=== PATIENT | male | born 1995 | race Caucasian/White ===

== ENCOUNTER → 2021-07-29 15:55 | Outpatient (CLI) | payer OTHER, SELFPAY ==
--- NOTE | 2021-07-29 15:59 | DI.MRI.S_ITS ---
PROCEDURE: MR SHOULDER LT WO CON INDICATIONS: PAIN IN SHOULDER TECHNIQUE: Noncontrast oblique coronal T2 fast spin echo with fat saturation, oblique sagittal T1 spin echo and T2 fast spin echo with fat saturation, axial T1 spin echo and T2 fast spin echo with fat saturation through the shoulder. COMPARISON: [facility], CR, XR SHOULDER 2+ VIEWS LEFT, 07/12/2021, 15:17. FINDINGS: Image quality: Excellent. Rotator cuff: There is low-grade partial-thickness tear of the distal supraspinatus tendon along the bursal surface and simple mild tendinosis. There is mild tendinosis of the infraspinatus and subscapularis without discrete tendon tear. Sagittal images demonstrate no rotator cuff muscle atrophy. Bones and bursae: No bone marrow contusions or fractures. Mild acromioclavicular joint degeneration. There is an os acromiale. No pathologic subacromial-subdeltoid or subcoracoid bursal fluid is present. Capsule and soft tissues: There is anterior superior labral tear at 11:00 position. The long head of the biceps tendon demonstrates normal location and morphology. The rotator interval appears normal, without fibrosis. The coracohumeral ligament is normal in thickness. IMPRESSION: 1. Low-grade partial thickness tear of the supraspinatus tendon and mild tendinosis. 2. Mild tendinosis of the infraspinatus and subscapularis tendons. 3. Anterior superior labral tear at 11:00 position. 4. 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 Dictated by: Krystina Null M.D. on 08/01/2021 at 9:11 Approved by: Krystina Null M.D. on 08/01/2021 at 9:21
== END ==
PROVIDERS: Referring Provider Physical Medicine & Rehabilitation Pain Medicine; Visit Provider Physical Medicine & Rehabilitation Pain Medicine
DX: M75.112 Incomplete rotator cuff tear or rupture of left shoulder, not specified as traumatic (principal); S43.492A Other sprain of left shoulder joint, initial encounter; M19.012 Primary osteoarthritis, left shoulder; M25.512 Pain in left shoulder
CPT/HCPCS: 73221

== ENCOUNTER → 2021-08-17 16:08 | Outpatient (CLI) | payer OTHER, SELFPAY ==
--- NOTE | 2021-08-17 | DI.MRI.S_ITS ---
PROCEDURE: MR HEAD/BRAIN WO CON INDICATIONS: MIGRAINE, UNSPECIFIED TECHNIQUE: Noncontrast axial T1 spin echo, axial T2 fast spin echo, sagittal and axial FLAIR, coronal T2 fast spin echo, axial gradient echo, axial diffusion and ADC through the brain. COMPARISON: None. FINDINGS: Image quality: Excellent. CSF Spaces: Basal cisterns are patent. No extra-axial fluid collections. Ventricles are normal in size and shape. Brain: No intracranial masses or hemorrhage. Torrez/white matter interface is normal. Brainstem appears normal. Diffusion-weighted images demonstrate no acute ischemic insult. No chronic ischemic insults. Normal intravascular flow voids are present. Skull and face: Calvarium has normal marrow signal. Orbits appear normal. Sinuses: Is there is a small mucous retention cyst seen involving the inferior right maxillary sinus. Sinuses and mastoids are otherwise clear. IMPRESSION: Normal intracranial study for age, without a cause of migraine headaches identified. Dictated by: Anton Ontiveros M.D. on 08/17/2021 at 17:04 Approved by: Anton Ontiveros M.D. on 08/17/2021 at 17:04
== END ==
PROVIDERS: Referring Provider Student in an Organized Health Care Education/Training Program; Visit Provider Student in an Organized Health Care Education/Training Program
DX: G43.909 Migraine, unspecified, not intractable, without status migrainosus (principal)
CPT/HCPCS: 70551

== ENCOUNTER → 2021-12-06 10:36 | Outpatient (CLI) | payer OTHER, SELFPAY ==
[2021-12-06 11:46] LABS: COVID19 -Nasal RAPID Negative (Negative)
== END ==
PROVIDERS: Referring Provider Orthopaedic Surgery; Visit Provider Orthopaedic Surgery
DX: Z20.822 Contact with and (suspected) exposure to COVID-19 (principal)
CPT/HCPCS: 87635; C9803

== ENCOUNTER 2021-12-08 08:47 | Day surgery (SDC) | payer OTHER, SELFPAY ==
[2021-12-05 14:57] VITALS: BMI 27.5
[2021-12-08] VITALS (9 sets, daily range): BP systolic 131–157; BP diastolic 76–107; PULSE 16–100; RESP 1–18; TEMP 36.3–36.6; O2SAT 91–100; BMI 32.5
[2021-12-08] MEDS: LACTATED RINGERS 1,000 ML 42 ML IV ×2 (09:39→12:56)
--- NOTE | 2021-12-08 10:32 | PM.HP.1 ---
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 Causing him pain and discomfort possible as a sensation of instability. Due to continued dysfunction to the left shoulder patient is interested to have a nonunion excised as well as the shoulder joint evaluated for signs of instability. Patient History Medical History Depression Headache, migraine Recurrent dislocation Family & Social History Social History: household members friend(s) Tobacco & Substance use: Tobacco type cigarettes,e-cigarettes Smoking Status Former smoker alcohol intake current alcohol intake frequency a few times a month Substance Use Type does not use Meds Home Medications and Allergies Allergies Allergy/AdvReac Type Severity Reaction Status Date / Time No Known Drug Allergies Allergy Verified 12/08/21 09:04 Exam Vital Signs (past 8 hours): - 12/08/21 09:16 Temperature 97.8 F Pulse Rate 64 Respiratory Rate 16 Blood Pressure 144/94 H Pulse Oximetry 100 Oxygen Delivery Method Room Air Oxygen Delivery Method Room Air Narrative Exam Narrative: Patient has passive full range of motion of the shoulder. No sign of any instability with full range of motion. He is tender to palpation over the AC joint. Normal rotator cuff strength and function. No sign of any stiffness or contractures. Does have a positive apprehension sign. Due to guarding it is hard to fully assess signs of laxity to the glenohumeral joint. 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 Also cites possible for instability. Discussed with the patient treatment options both operative versus non operative and the risks and limitations associated both. Patient is interested in proceeding with surgical treatment which would involve an open distal clavicle excision removing that nonunited fragment. Would also do a diagnostic scope and see if there is truly any signs of instability and if so do an anterior stabilization procedure arthroscopically as well. Patient fully understands the risk and limitations associated with this procedure as well as the rehabilitation and recovery required afterwards. All of his questions and concerns were answered to his full satisfaction . The risk, benefits, alternatives, possible complications, operative course, and postop outcomes were discussed. Complications including but not limiting to bleeding, infection, fracture, nerve injury, continued pain postoperatively or instability postoperatively were discussed in detail. Medical complications including but not limited to deep venous thrombosis event, anesthesia complications with excessive bleeding, vascular events or cardiac events and other possible complications were discussed in detail. Need for postoperative rehabilitation and anticipated hospital stay and clinical course were discussed in detail. Patient acknowledges understanding and elects to proceed with surgery. Time Spent With Patient Critical Care time: I spent a total of [] minutes of critical care time on this patient's care today; this time is exclusive of procedural time.
--- NOTE | 2021-12-08 10:35 | PM.PREOP ---
Pre-operative Note Interval Note History & Physical reviewed/Exam performed by Physician: Yes Changes to H&P: No
[2021-12-08] MEDS: CEFAZOLIN 2 GM/100 ML PREMIX 100 ML IV (11:40)
--- NOTE | 2021-12-08 12:07 | SUR.OPER ---
Beach chair with Maquet shoulder positioner. Lower body on padded OR bed. Head in foam padded head cradle, secured with straps. Non-operative arm secured <90 degrees abduction. Pillow under knees. Safety belt at thigh. Cloth tape over blanket over lower legs. Gel pad under heels
[2021-12-08] MEDS: BUPIVACAINE 0.5% W/ EPI (PF) 30 ML VIAL INJ (12:12)
[2021-12-08] MEDS: SODIUM CHLORIDE IRRIG SOLUTION 3,000 ML, EPINEPHrine 1 MG IRR (12:13)
--- NOTE | 2021-12-08 12:54 | PM.OP.1 ---
Operative Date/Time/Diagnoses Date of procedure: 12/08/21 Time of procedure: 11:30 Pre-op diagnosis: Left distal clavicle fracture nonunion, left shoulder instability Post-op diagnosis: same Procedure & Clinicians Procedure: Left distal clavicle excision, left Bankart repair with anterior capsular shift Same procedure as scheduled: Yes Indications: Nonunion to distal clavicle fracture and left shoulder instability Surgeon: Ebenezer Vogt Information Security Analyst: Nahomi Bill Anesthesia Type: General and Peripheral nerve block Operative Notes Findings: Nonunion of a distal clavicle fracture no sign of any AC joint instability. Type 1 slap tear as well as some tearing to the anterior inferior labrum. Positive drive-through sign but unable to dislocate the shoulder. Closure Type: primary Applied: implant(s) (Two Arthrex PushLock anchors) Procedure in detail: On date of service, Patient was met in the holding area. The operative site was signed and witnessed by the OR staff. The surgeries once again discussed with the patient and any remaining questions they had were answered fully. Patient was taken back to the operating theater and placed on the operating table in a supine position. Great care was taken to ensure that all bony prominences were properly padded. Patient was then placed into the beach chair position. The head and neck were properly positioned and secured. A timeout was performed verifying patient's name, procedure, and the operative site. The upper extremity was then prepped and draped in the normal sterile fashion. Previously, the bony anatomy and portal sites were marked out as well as injected with Marcaine with epinephrine. We started with the distal clavicle excision. Using a 10 blade an incision was made centered over the AC joint. Ten blade was used to incise through skin and fascial tissue. Electrocautery was used to achieve hemostasis. A deep knife was then continued exposing the distal aspect of the clavicle as well as the AC joint. Patient had a loose fragment from his distal clavicle fracture from 10 years ago. This was sharply excised using the 15 blade allowing us to remove the non united fragment in 1 piece. There was no sign of any AC joint instability. No superior displacement of the clavicle. No sign of any possible impingement between the distal end of the clavicle and the acromion. The wound was copiously irrigated then closed in a layered fashion repairing the capsular tissue around the AC joint. We then turned our attention to the arthroscopic portion the surgery. An 11 blade was used to make an incision in the posterior aspect of the shoulder. The camera was placed, and a diagnostic shoulder scope was performed. Findings listed above. Next under direct visualization, 2 portals were made. Anterior superior and anterior inferior portals. A shaver was brought in anteriorly and a debridement of the glenohumeral joint was performed. Mainly focusing on some articular sided tearing of the supraspinatus. No sign of any high-grade partial tears. Shaver was then used to debride the labral tear as well as the bony surface to get a better healing surface. Patient has some fraying to the superior aspect of the labrum but no significant tearing into the bicipital anchor or biceps. Shaver was used to remove and debride the type 1 slap tear. Next, FiberStick suture was then passed through the capsule tissue as well as the labral tissue at around 5:30 these 2 suture limbs were then placed into an anchor. A drill hole was made in the anchor was used to tenodesis the torn labrum and do a capsular shift to the anterior inferior aspect of the glenoid. This process was repeated 1 more times at 4:00 which provided a secure repair of the torn labrum as well as help stabilize the shoulder. Patient had a positive drive-through sign before the repair and that was resolved after the repair. Patient's shoulder was taken through range of motion and there was no sign of any residual instability. Patient's shoulder was then cleaned dried and dressed and patient was taken to the PACU in stable condition Complications: none Post-operative Condition: stable Disposition: PACU Plan for aftercare: Patient will follow our postoperative protocol for a Bankart repair
[2021-12-08] MEDS: ONDANSETRON 4 MG/2 ML INJ IV (14:03)
[2021-12-08] MEDS: MAG HYDROX/ALUM/SIMETH 30 ML UDC PO (14:40)
== END 2021-12-08 14:41 | disposition home or self-care (01) ==
PROVIDERS: Referring Provider Orthopaedic Surgery; Visit Provider Orthopaedic Surgery
PROC: (CPT 23120; principal; 2021-12-08 10:15)
PROC: 0RQK4ZZ Repair Left Shoulder Joint, Percutaneous Endoscopic Approach (ICD-10-PCS; CPT 29807; 2021-12-08 10:15)
DX: M25.312 Other instability, left shoulder (principal); S42.032K Displaced fracture of lateral end of left clavicle, subsequent encounter for fracture with nonunion; S43.432A Superior glenoid labrum lesion of left shoulder, initial encounter; M79.18 Myalgia, other site; R20.2 Paresthesia of skin
CPT/HCPCS: 29806; 23120; 29823; 64415; J0171; J0690; J1100; J2250; J2405; J2704; J3010

== ENCOUNTER → 2023-10-11 07:45 | Outpatient (CLI) | payer OTHER, SELFPAY ==
--- NOTE | 2023-10-11 07:47 | DI.MRI.S_ITS ---
PROCEDURE: MR CHEST WO CON INDICATIONS: injury of muscle and tendon of front wall of thora TECHNIQUE: Axial and oblique coronal T1 spin echo and T2 spin echo with fat saturation, sagittal T1 spin echo and STIR acquired through the affected chest wall. COMPARISON: None. FINDINGS: Image quality: Excellent. Soft tissues: The bilateral pectoralis major and pectoralis minor are symmetric in muscle bulk. No associated muscle edema or fatty atrophy of the pectoralis major or pectoralis minor of either site. No tear of the right pectoralis major and minor. There is a 2.6 cm T2 hyperintense lesion about the right pericardium, which may represent a pericardial cyst, incompletely evaluated. Bones: Unremarkable IMPRESSION: 1. Unremarkable right pectoralis muscle. 2. 2.6 cm likely pericardial cyst, incompletely evaluated. Further evaluation with MRI with intravenous contrast of the chest can be considered if clinically indicated. Dictated by: Ann Peñaloza M.D. on 10/11/2023 at 18:06 Approved by: Ann Peñaloza M.D. on 10/11/2023 at 18:15
== END ==
PROVIDERS: Referring Provider Student in an Organized Health Care Education/Training Program; Visit Provider Student in an Organized Health Care Education/Training Program
DX: S29.091A Other injury of muscle and tendon of front wall of thorax, initial encounter (principal); X58.XXXA Exposure to other specified factors, initial encounter
CPT/HCPCS: 71550